=== PATIENT | female | born 1990 | race Caucasian/White ===

== ENCOUNTER 2018-06-13 19:14 | Emergency (ER) | payer OTHER ==
[2018-06-13 19:25] VITALS: O2SAT 99
--- NOTE | 2018-06-13 20:03 | ERPHSYRPT ---
- History of Present Illness Time Seen by Provider: 06/13/18 19:35 Source: patient Exam Limitations: no limitations Patient Subjective Stated Complaint: pt is and started bleeding about 30 mins ago, this is pts second . cramping and lower back pain for 2 days, no injury Triage Nursing Assessment: pt alert, resp easy, skin w/d/p. abd soft Physician History: patient is a with one previous healthy child, who presents with abdominal pain/vaginal bleeding. Patient last menstrual cycle was approximately 2017. Patient has tested positive with urine and have been doing well until today. Patient noted crampy, localized suprapubic pain while using bathroom, then had some blood that was on her tissue after wiping. Patient did note some vaginal discharge, but denies any blood clots or tissue passing. Patient denies any recent fever, chills, vomiting, diarrhea, back pain or urinary symptoms Timing/Duration: today, hour(s) (2 hours prior to arrival), intermittent, improved Activites at Onset: other (using the bathroom) Quality: cramping Onset Location: suprapubic Pain Radiation: none Severity of Pain-Max: mild Severity of Pain-Current: mild Prior abdominal problems: none Sexual intercourse history: non-contributory, single partner Modifying Factors: Improves With: defecating (worsens) Associated Symptoms: abdominal pain, , vaginal discharge, No fever, No chills, No nausea, No vomiting Allergies/Adverse Reactions: [facility] Allergy (Verified 06/13/18 19:25) Penicillins Allergy (Verified 06/13/18 19:25) Home Medications: Vits W-Ca,Fe,FA(<1Mg) [] 1 each PO DAILY 06/13/18 [History] Hx Influenza Vaccination/Date Given: Yes Hx Pneumococcal Vaccination/Date Given: No - Review of Systems Constitutional: No Symptoms, No Fever, No Chills Eyes: No Symptoms Ears, Nose, & Throat: No Symptoms Respiratory: No Symptoms, No Cough, No Dyspnea Cardiac: No Symptoms, No Chest Pain, No Edema, No Syncope Abdominal/Gastrointestinal: Abdominal Pain, No Nausea, No Vomiting, No Diarrhea Genitourinary Symptoms: Vaginal Bleeding, Vaginal Discharge, No Dysuria, No Frequency, No Hematuria Musculoskeletal: No Symptoms, No Back Pain, No Neck Pain Skin: No Rash Neurological: No Dizziness, No Focal Weakness, No Sensory Changes Psychological: No Symptoms Endocrine: No Symptoms Hematologic/Lymphatic: No Symptoms Immunological/Allergic: No Symptoms All Other Systems: Reviewed and Negative - Past Medical History Pertinent Past Medical History: No - Past Surgical History Past Surgical History: Yes Other Surgical History: cyst removed from right wrist - Social History Smoking Status: Never smoker Exposure to second hand smoke: No Drug Use: none Patient Lives Alone: No - Female History Hx Last Menstrual Period: april 22 Hx Now: Yes - Nursing Vital Signs Nursing Vital Signs: Initial Vital Signs Temperature 98 F 06/13/18 19:19 Pulse Rate 120 H 06/13/18 19:19 Respiratory Rate 16 06/13/18 19:19 Blood Pressure 139/109 06/13/18 19:19 O2 Sat by Pulse Oximetry 99 06/13/18 19:19 Pain Scale Pain Intensity 2 - Physical Exam General Appearance: no apparent distress, alert Eye Exam: PERRL/EOMI, eyes nml inspection Ears, Nose, Throat Exam: normal ENT inspection, TMs normal, pharynx normal, moist mucous membranes Neck Exam: normal inspection, non-tender, supple, full range of motion Respiratory Exam: normal breath sounds, lungs clear, No respiratory distress Cardiovascular Exam: regular rate/rhythm, normal heart sounds, normal peripheral pulses Gastrointestinal/Abdomen Exam: soft, No tenderness, No mass Back Exam: normal inspection, normal range of motion, No CVA tenderness, No vertebral tenderness Extremity Exam: normal inspection, normal range of motion, pelvis stable Neurologic Exam: alert, oriented x 3, cooperative, polisher numeral II-XII nml as tested, normal mood/affect, sensation nml, No motor deficits Skin Exam: normal color, warm, dry Lymphatic Exam: No adenopathy SpO2: 99 Oxygen Delivery: Room Air - Course Nursing assessment & vital signs reviewed: Yes Ordered Tests: Active Orders 24 hr Category Date Time Status BMP Stat Lab 06/13/18 07:55 Completed CBC W DIFF Stat Lab 06/13/18 07:55 Completed CULTURE,URINE Stat Lab 06/13/18 19:55 Received HCG, Quantitative (Inhouse) Stat Lab 06/13/18 07:55 Completed UA W/ MICROSCOPIC Stat Lab 06/13/18 19:55 Completed Wet Prep Stat Lab 06/13/18 20:30 Completed Lab/Rad Data: Laboratory Result Diagrams 06/13/18 07:55 06/13/18 07:55 Laboratory Results 06/13/18 06/13/18 06/13/18 Range/Units 20:30 19:55 07:55 WBC (4.0-10.5) K/mm3 RBC (4.1-5.4) M/mm3 Hgb (12.0-16.0) gm/dl Hct (35-47) % MCV (78-100) fl MCH (26-32) pg MCHC (32-36) g/dl RDW (11.5-14.0) % Plt Count (150-450) K/mm3 MPV (6-9.5) fl Gran % (36.0-66.0) % Eos # (Auto) (0-0.5) Absolute Lymphs (auto) (1.0-4.6) Absolute Monos (auto) (0.0-1.3) Lymphocytes % (24.0-44.0) % Monocytes % (0.0-12.0) % Eosinophils % (0.00-5.0) % Basophils % (0.0-0.4) % Absolute Granulocytes (1.4-6.9) Basophils # (0-0.4) Sodium (137-145) mmol/L Potassium (3.5-5.1) mmol/L Chloride (98-107) mmol/L Carbon Dioxide (22-30) mmol/L Anion Gap (5-15) MEQ/L BUN (7-17) mg/dL Creatinine (0.52-1.04) mg/dL Estimated GFR ML/MIN Glucose (74-106) mg/dL Calcium (8.4-10.2) mg/dL Beta HCG, Quant 1881.8 mIU/ml Ur Collection Type VOID Urine Color BROWN (YELLOW) Urine Appearance CLOUDY (CLEAR) Urine pH 5.0 (5-6) Ur Specific [place] 1.025 (1.005-1.025) Urine Protein 100 (Negative) Urine Ketones TRACE (NEGATIVE) Urine Blood 250 (0-5) Hood/ul Urine Nitrite NEGATIVE (NEGATIVE) Urine Bilirubin NEGATIVE (NEGATIVE) Urine Urobilinogen NORMAL (0-1) mg/dL Ur Leukocyte Esterase TRACE (NEGATIVE) Urine Microscopic RBC >100 (0-2) /HPF Urine Microscopic WBC 2-5 (0-5) /HPF Ur Epithelial Cells FEW (FEW) /HPF Urine Bacteria FEW (NEGATIVE) /HPF Urine Culture Reflexed YES (NO) Urine Glucose NEGATIVE (NEGATIVE) mg/dL WBC (Wet Prep) Rare RBC (Wet Prep) Many Epi Cells (Wet Prep) Rare Bacteria (Wet Prep) Few Clue Cells (Wet Prep) None Seen Trichomonas (Wet Prep) None Seen Budding Yeast (Wet Prp) None Seen Specimen Received 06/13 202006/13/18 06/13/18 Range/Units 07:55 07:55 WBC 8.4 (4.0-10.5) K/mm3 RBC 4.46 (4.1-5.4) M/mm3 Hgb 12.9 (12.0-16.0) gm/dl Hct 37.8 (35-47) % MCV 84.8 (78-100) fl MCH 28.9 (26-32) pg MCHC 34.1 (32-36) g/dl RDW 12.8 (11.5-14.0) % Plt Count 308 (150-450) K/mm3 MPV 9.8 H (6-9.5) fl Gran % 59.4 (36.0-66.0) % Eos # (Auto) 0.26 (0-0.5) Absolute Lymphs (auto) 2.53 (1.0-4.6) Absolute Monos (auto) 0.58 (0.0-1.3) Lymphocytes % 30.1 (24.0-44.0) % Monocytes % 6.9 (0.0-12.0) % Eosinophils % 3.1 (0.00-5.0) % Basophils % 0.5 (0.0-0.4) % Absolute Granulocytes 4.99 (1.4-6.9) Basophils # 0.04 (0-0.4) Sodium 139 (137-145) mmol/L Potassium 3.2 L (3.5-5.1) mmol/L Chloride 103 (98-107) mmol/L Carbon Dioxide 25 (22-30) mmol/L Anion Gap 14.0 (5-15) MEQ/L BUN 5 L (7-17) mg/dL Creatinine 0.74 (0.52-1.04) mg/dL Estimated GFR > 60.0 ML/MIN Glucose 95 (74-106) mg/dL Calcium 9.1 (8.4-10.2) mg/dL Beta HCG, Quant mIU/ml Ur Collection Type Urine Color (YELLOW) Urine Appearance (CLEAR) Urine pH (5-6) Ur Specific [place] (1.005-1.025) Urine Protein (Negative) Urine Ketones (NEGATIVE) Urine Blood (0-5) Hood/ul Urine Nitrite (NEGATIVE) Urine Bilirubin (NEGATIVE) Urine Urobilinogen (0-1) mg/dL Ur Leukocyte Esterase (NEGATIVE) Urine Microscopic RBC (0-2) /HPF Urine Microscopic WBC (0-5) /HPF Ur Epithelial Cells (FEW) /HPF Urine Bacteria (NEGATIVE) /HPF Urine Culture Reflexed (NO) Urine Glucose (NEGATIVE) mg/dL WBC (Wet Prep) RBC (Wet Prep) Epi Cells (Wet Prep) Bacteria (Wet Prep) Clue Cells (Wet Prep) Trichomonas (Wet Prep) Budding Yeast (Wet Prp) Specimen Received - Progress Progress: improved Progress Note: 06/13/18 21:15 patient informed of labs including a quantitative hCG level of 1800. Patient without any pelvic/abdominal pain on exam. Instructed patient to get level rechecked in 2 or 3 days with her [facility] doctor Blood Culture(s) Obtained: No Antibiotics given: No Counseled pt/family regarding: lab results, diagnosis - Departure Time of Disposition: 21:17 Departure Disposition: Home Clinical Impression: Threatened Condition: Stable Critical Care Time: No Referrals: DOCTOR,NO FAMILY [Primary Care Provider] - Instructions: Threatened Miscarriage (DC) Additional Instructions: may take Tylenol for pain/fever. Follow-up with your [facility] doctor in 2 or 3 days for quantitative hCG level rechecked. Return for worse abdominal pain, fever, vomiting, dizziness, weakness or any problems
[2018-06-13 20:22] LABS: BASOPHIL % 0.5 % (0.0-0.4); Basophil (Absolute #) 0.04 (0-0.4); Eosinophil % 3.1 % (0.00-5.0); Eosinophil (Absolute #) 0.26 (0-0.5); Granulocyte Absolute (ANC) 4.99 (1.4-6.9); Granulocytes % 59.4 % (36.0-66.0); Hematocrit 37.8 % (35-47); Hemoglobin 12.9 gm/dl (12.0-16.0); Lymphocyte (Absolute #) 2.53 (1.0-4.6); Lymphocytes % 30.1 % (24.0-44.0); Mean Cell Volume 84.8 fl (78-100); Mean Corpuscular Hemoglobin 28.9 pg (26-32); Mean Corpuscular Hgb Concent. 34.1 g/dl (32-36); Mean Platelet Volume 9.8 fl (6-9.5); Monocyte (Absolute #) 0.58 (0.0-1.3); Monocytes % 6.9 % (0.0-12.0); Platelet Count 308 K/mm3 (150-450); Red Blood Count 4.46 M/mm3 (4.1-5.4); Red Cell Distribution Width 12.8 % (11.5-14.0); White Blood Count 8.4 K/mm3 (4.0-10.5)
[2018-06-13 20:33] LABS: BLOOD UREA NITROGEN 5 mg/dL (7-17); CHLORIDE 103 mmol/L (98-107); Calcium 9.1 mg/dL (8.4-10.2); Carbon Dioxide 25 mmol/L (22-30); Creatinine 1 0.74 mg/dL (0.52-1.04); Glucose 95 mg/dL (74-106); Potassium 3.2 mmol/L (3.5-5.1); SODIUM 139 mmol/L (137-145)
[2018-06-13 20:36] LABS: Appearance CLOUDY (CLEAR); Glucose NEGATIVE (NEGATIVE); Ketones TRACE (NEGATIVE); Leukocyte Esterase TRACE (NEGATIVE); Nitrite NEGATIVE (NEGATIVE); Protein,Urine Dip 100 (Negative); Specific Gravity 1.025 (1.005-1.025)
[2018-06-13 20:37] LABS: Bilirubin NEGATIVE (NEGATIVE); Blood 250 Ery/ul (0-5); RBC >100 /HPF (0-2); Urobilinogen NORMAL mg/dL (0-1)
[2018-06-13 20:38] LABS: Bacteria FEW /HPF (NEGATIVE); Epithelial Cells FEW /HPF (FEW)
[2018-06-13 20:59] LABS: Bacteria Few; Clue Cells None Seen; Red Blood Cells Many; Trichomonas None Seen
[2018-06-13 21:00] LABS: White Blood Cells Rare
[2018-06-13 21:34] VITALS: BP 122/79; PULSE 112
== END 2018-06-13 21:35 | disposition home or self-care (01) ==
LOC: ED 19:14
DX: O20.0 Threatened abortion (principal)
CPT/HCPCS: 36415; 80048; 81000; 84702; 85025; 87086; 87210; 87490; 87590; 99283

== ENCOUNTER 2021-11-19 08:53 | Emergency (ER) | payer OTHER ==
[2021-11-19] MEDS ORDERED: Sodium Chloride 0.9% 1000 ML 1,000 ML IV STA ×2 (09:03→10:28)
--- NOTE | 2021-11-19 09:17 | ERPHSYRPT ---
- History of Present Illness Time Seen by Provider: 11/19/21 09:10 Source: patient Exam Limitations: no limitations Patient Subjective Stated Complaint: PT states "It started with a headache on and on friday I had a little diarrhea and body aches. I had a covid t est on friday and it was negative. I have had pure water diarrhea since then and just feel like crap." Triage Nursing Assessment: PT presented alert and oriented X 3, skin pwd Pt ambulates with an upright steady gait, able to speak in clear full sentences pt in no apparent respiratory distress. Pt resting comfortably on the bed. Physician History: Patient is a 31-year-old female presents to the emergency department for evaluation of diarrhea that she has had for the last 4 days. Patient states that anything she eats goes right through her. Patient is experiencing some myalgias. She has a mild headache. Patient feels somewhat weak. No nausea or vomiting. No abdominal pain. No trauma. No fever. Patient is otherwise healthy. Symptoms are mild to moderate in intensity. No specific worsening or improving factors. Patient has not reported her symptoms to her primary care provider. Patient has not followed up with her primary care provider. Patient had a negative COVID test recently. However this was done early after onset of symptoms. It is possible that it may have been a false negative. Patient voices no other complaints or concerns at this time. No recent travel Timing/Duration: day(s) (4 days ago) Severity: moderate Modifying Factors: Improves With: nothing Allergies/Adverse Reactions: cefaclor [From Ceclor] Allergy (Verified 06/13/18 19:25) Penicillins Allergy (Verified 06/13/18 19:25) Home Medications: Escitalopram Oxalate [Lexapro] 20 mg PO DAILY 11/19/21 [History] Hx Tetanus, Diphtheria Vaccination/Date Given: No Hx Influenza Vaccination/Date Given: Yes Hx Pneumococcal Vaccination/Date Given: No Immunizations Up to Date: Yes Travel Risk - International Travel Have you traveled outside of the country in past 3 weeks: No - Coronavirus Screening Are you exhibiting any of the following symptoms?: Yes Symptoms: Vomiting/Diarrhea Close contact with a COVID-19 positive Pt in past 14-21 Days: No - Vaccine Status Have you recieved a Covid-19 vaccination: Yes Physiatrist: [facility] - Vaccination Dates Date of 2cond Vaccination (if applicable): 07/2021 - Review of Systems Constitutional: No Symptoms, No Fever, No Chills Eyes: No Symptoms Ears, Nose, & Throat: No Symptoms Respiratory: No Symptoms, No Cough, No Dyspnea Cardiac: No Symptoms, No Chest Pain, No Edema, No Syncope Abdominal/Gastrointestinal: No Symptoms, No Abdominal Pain, No Nausea, No Vomiting, No Diarrhea Genitourinary Symptoms: No Symptoms, No Dysuria Musculoskeletal: No Symptoms, No Back Pain, No Neck Pain Skin: No Symptoms, No Rash Neurological: No Symptoms, No Dizziness, No Focal Weakness, No Sensory Changes Psychological: No Symptoms Endocrine: No Symptoms Hematologic/Lymphatic: No Symptoms Immunological/Allergic: No Symptoms All Other Systems: Reviewed and Negative - Past Medical History Pertinent Past Medical History: No - Past Surgical History Past Surgical History: Yes Other Surgical History: cyst removed from right wrist - Social History Smoking Status: Never smoker Exposure to second hand smoke: No Drug Use: none Patient Lives Alone: No - Female History Hx Last Menstrual Period: mirena Hx Now: (unknown) - Nursing Vital Signs Nursing Vital Signs: Initial Vital Signs Temperature 97.4 F 11/19/21 09:02 Pulse Rate 101 H 11/19/21 09:02 Respiratory Rate 20 11/19/21 09:02 O2 Sat by Pulse Oximetry 97 11/19/21 09:02 Pain Scale Pain Intensity 0 - Physical Exam General Appearance: no apparent distress, alert Eye Exam: PERRL/EOMI, eyes nml inspection Ears, Nose, Throat Exam: normal ENT inspection, TMs normal, pharynx normal, moist mucous membranes Neck Exam: normal inspection, non-tender, supple, full range of motion Respiratory Exam: normal breath sounds, lungs clear, airway intact, No respiratory distress Cardiovascular Exam: regular rate/rhythm, normal heart sounds, normal peripheral pulses Gastrointestinal/Abdomen Exam: soft, normal bowel sounds, No tenderness, No mass Back Exam: normal inspection, normal range of motion, No CVA tenderness, No vertebral tenderness Extremity Exam: normal inspection, normal range of motion, pelvis stable Neurologic Exam: alert, oriented x 3, cooperative, normal mood/affect, nml cerebellar function, nml station & gait, sensation nml, No motor deficits Skin Exam: normal color, warm, dry, No rash Lymphatic Exam: No adenopathy SpO2 Interpretation: normal SpO2: 97 O2 Delivery: Room Air - Course Nursing assessment & vital signs reviewed: Yes Ordered Tests: Active Orders 24 hr Category Date Time Status IV Insertion STAT Care 11/19/21 09:03 Active CBC W DIFF Stat Lab 11/19/21 09:18 Completed CMP Stat Lab 11/19/21 09:18 Completed HCG,QUALITATIVE URINE Stat Lab 11/19/21 09:04 Ordered LIPASE Stat Lab 11/19/21 09:18 Completed UA W/RFX UR CULTURE Stat Lab 11/19/21 09:04 Ordered Medication Summary Discontinued Medications Generic Name Dose Route Start Last Admin Trade Name [place] PRN Reason Stop Dose Admin Sodium Chloride 1,000 mls @ 999 mls/hr 11/19/21 09:03 11/19/21 09:23 Sodium Chloride 0.9% 1000 Ml IV 11/19/21 10:03 999 mls/hr .Q1H1M STA Administration Sodium Chloride Confirm 11/19/21 09:22 Sodium Chloride 0.9% 1000 Ml Administered 11/19/21 09:23 Dose 1,000 mls @ ud .ROUTE .K-MED ONE Lab/Rad Data: Laboratory Result Diagrams 11/19/21 09:18 11/19/21 09:18 Laboratory Results 11/19/21 11/19/21 Range/Units 09:18 09:18 WBC 8.6 (4.0-10.5) K/mm3 RBC 5.14 (4.1-5.4) M/mm3 Hgb 14.4 (12.0-16.0) gm/dl Hct 43.1 (35-47) % MCV 83.9 (78-100) fl MCH 28.0 (26-32) pg MCHC 33.4 (32-36) g/dl RDW 13.0 (11.5-14.0) % Plt Count 309 (150-450) K/mm3 MPV 9.4 (7.5-11.0) fl Gran % 69.3 H (36.0-66.0) % Eos # (Auto) 0.23 (0-0.5) Absolute Lymphs (auto) 1.71 (1.0-4.6) Absolute Monos (auto) 0.65 (0.0-1.3) Lymphocytes % 20.0 L (24.0-44.0) % Monocytes % 7.6 (0.0-12.0) % Eosinophils % 2.7 (0.00-5.0) % Basophils % 0.4 (0.0-0.4) % Absolute Granulocytes 5.94 (1.4-6.9) Basophils # 0.03 (0-0.4) Sodium 138 (137-145) mmol/L Potassium 4.0 (3.5-5.1) mmol/L Chloride 106 (98-107) mmol/L Carbon Dioxide 23 (22-30) mmol/L Anion Gap 12.4 (5-15) MEQ/L BUN 12 (7-17) mg/dL Creatinine 0.80 (0.52-1.04) mg/dL Estimated GFR > 60.0 ML/MIN Glucose 95 (74-106) mg/dL Calcium 9.8 (8.4-10.2) mg/dL Total Bilirubin 0.70 (0.2-1.3) mg/dL AST 31 (14-36) U/L ALT 33 (0-35) U/L Alkaline Phosphatase 73 (38-126) U/L Serum Total Protein 7.4 (6.3-8.2) g/dL Albumin 4.4 (3.5-5.0) g/dL Lipase 70 (23-300) U/L - Progress Progress: improved Progress Note: Laboratory work-up essentially nonremarkable. Patient received liter IV fluids. She feels better. We will administer another liter of IV fluids. Will discharge patient home. Patient will be provided diet to assist with her diarrhea. Patient will try [id number] antidiarrheal agents. No indication for further work-up. Vitals stable. Patient voices no other complaints or concerns at this time. Portions of this note were created with voice recognition technology. There may be grammatical, spelling, punctuation or sound alike errors 11/19/21 10:28 Outpatient COVID test ordered. Results pending. 11/19/21 10:31 Counseled pt/family regarding: lab results, diagnosis, need for follow-up - Departure Departure Disposition: Home Clinical Impression: Diarrhea, Generalized weakness Condition: Stable Critical Care Time: No Referrals: REX OLIVER NP [Primary Care Provider] - Follow up/PCP as directed Additional Instructions: Discharge/Care Plan LATOSHA SINGER was seen on 11/19/21 in the Emergency Room. The patient was counseled regarding Diagnosis,Lab results, Imaging studies, need for follow up and when to return to the Emergency Room. Prescriptions given: Discharge Note I have spoken with the patient and/or caregivers. I have explained the patient's condition, diagnosis and treatment plan based on the information available to me at this time. I have answered the patient's and/or caregiver's questions and addressed any concerns. The patient and/or caregivers have as good understanding of the patient's diagnosis, condition and treatment plan as can be expected at this point. The vital signs have been stable. The patient's condition is stable and appropriate for discharge from the emergency department. The patient will pursue further outpatient evaluation with the primary care physician or other designated or consulting physician as outlined in the discharge instructions. The patient and/or caregivers are agreeable to this plan of care and follow-up instructions have been explained in detail. The patient and/or caregivers have received these instruction. The patient/and or caregivers are aware that any significant change in condition or worsening of symptoms should prompt an immediate return to this or the closest emergency department or call 911.
[2021-11-19] MEDS ORDERED: Sodium Chloride 0.9% 1000 ML 1,000 ML ONE ×2 (09:22→10:27)
[2021-11-19 09:35] LABS: ALBUMIN 4.4 g/dL (3.5-5.0); ALKALINE PHOSPHATASE 73 U/L (38-126); ANION GAP 12.4 MEQ/L (5-15); BLOOD UREA NITROGEN 12 mg/dL (7-17); CHLORIDE 106 mmol/L (98-107); Calcium 9.8 mg/dL (8.4-10.2); Carbon Dioxide 23 mmol/L (22-30); EST GLOMERULAR FILTRATION RATE > 60.0 ML/MIN; Glucose 95 mg/dL (74-106); LIPASE 70 U/L (23-300); SGOT/AST 31 U/L (14-36); SGPT/ALT 33 U/L (0-35); SODIUM 138 mmol/L (137-145); Total Protein 7.4 g/dL (6.3-8.2)
[2021-11-19 09:40] LABS: Absolute Neutrophil Ct (ANC) 5.94 (1.4-6.9); Basophil (Absolute #) 0.03 (0-0.4); Eosinophil % 2.7 % (0.00-5.0); Eosinophil (Absolute #) 0.23 (0-0.5); Hematocrit 43.1 % (35-47); Hemoglobin 14.4 gm/dl (12.0-16.0); Lymphocyte (Absolute #) 1.71 (1.0-4.6); Mean Cell Volume 83.9 fl (78-100); Mean Corpuscular Hgb Concent. 33.4 g/dl (32-36); Mean Platelet Volume 9.4 fl (7.5-11.0); Monocyte (Absolute #) 0.65 (0.0-1.3); Monocytes % 7.6 % (0.0-12.0); Neutrophil % 69.3 % (36.0-66.0); Platelet Count 309 K/mm3 (150-450); Red Blood Count 5.14 M/mm3 (4.1-5.4); White Blood Count 8.6 K/mm3 (4.0-10.5)
[2021-11-19 11:38] LABS: Appearance CLEAR (CLEAR); Bilirubin NEGATIVE (NEGATIVE); Blood MODERATE Ery/ul (0-5); Epithelial Cells RARE /HPF (FEW); Glucose NEGATIVE (NEGATIVE); Ketones NEGATIVE (NEGATIVE); Leukocyte Esterase NEGATIVE (NEGATIVE); Mucus SLIGHT /HPF (NEGATIVE); Nitrite NEGATIVE (NEGATIVE); Protein,Urine Dip NEGATIVE (Negative); Specific Gravity 1.012 (1.005-1.025); Urobilinogen NEGATIVE mg/dL (0-1)
[2021-11-19 11:40] LABS: Bacteria RARE /HPF (NEGATIVE); RBC 0-2 /HPF (0-2)
[2021-11-19 12:05] VITALS: BP 123/88; PULSE 86; O2SAT 100
[2021-11-19 12:38] LABS: INFLUENZA A NEGATIVE (NEGATIVE); INFLUENZA B NEGATIVE (NEGATIVE)
== END 2021-11-19 12:51 | disposition home or self-care (01) ==
LOC: ED 08:53
DX: R19.7 Diarrhea, unspecified (principal); R53.1 Weakness; R51.9 Headache, unspecified; M79.10 Myalgia, unspecified site
CPT/HCPCS: 36000; 36415; 80053; 81001; 83690; 84703; 85025; 87400; 96360; 99284; U0003